=== PATIENT | female | born 1980 | race Hispanic/Latino ===

== ENCOUNTER 2018-06-17 04:48 | Inpatient (IN) | payer MEDICAID, OTHER ==
[~2018-06-17] VITALS: Ht 162.6 cm; Wt 79.4 kg
[2018-06-17] MEDS ORDERED: LACTATED RINGERS 1000ML 1,000 ML IV PRN (05:04)
[2018-06-17] MEDS ORDERED: MEPERIDINE-PF 50 MG/ML SYG IVP ONE (05:15)
[2018-06-17] MEDS ORDERED: PROMETHAZINE HCL 25 MG/ML 1ML AMPULE IM SCH (05:15)
[2018-06-17 05:18] LABS: HEMATOCRIT 36.2 % (36-48); MEAN CORPUSCULAR HEMOGLOBIN 30.4 pg (27.0-33.0); MEAN CORPUSCULAR HGB CONC 34.5 g/dL (32.0-36.0); PLATELET COUNT (AUTO) 158 K/uL (130-400); RED BLOOD CELL COUNT(AUTO) 4.12 MIL/uL (4.00-5.50); RED CELL DISTRIBUTION WIDTH 12.8 % (11.0-15.5); WHITE BLOOD COUNT (AUTO) 19.8 K/uL (4.8-10.8)
[2018-06-17] MEDS ORDERED: AMPICILLIN 2GM+NS 100ML 100 ML IV ONE (05:18)
[2018-06-17] MEDS ORDERED: PROMETHAZINE HCL 25 MG/ML 1ML AMPULE IM ONE (05:18)
[2018-06-17] MEDS ORDERED: MEPERIDINE-PF 50 MG/ML SYG ONE (05:19)
[2018-06-17] MEDS ORDERED: LACTATED RINGERS 1000ML 1,000 ML IV ONE (05:30)
[2018-06-17] MEDS ORDERED: AMPICILLIN 2GM+NS 100ML 100 ML IV SCH (05:30)
[2018-06-17] MEDS ORDERED: AMPICILLIN 1GM+NS 50ML 50 ML IV SCH (05:30)
[2018-06-17] MEDS ORDERED: OXYTOCIN 10 USP UNITS/ML ONE ×3 (05:31→07:38)
[2018-06-17] MEDS ORDERED: CEFAZOLIN SODIUM 1 GM VIAL ONE (06:28)
[2018-06-17] MEDS ORDERED: CALDOLOR 800MG+NS 250ML 250 ML IV ONE (06:32)
[2018-06-17] MEDS ORDERED: METHYLERGONOVINE MALEATE 0.2 MG/1 ML ML ONE (06:33)
[2018-06-17] MEDS ORDERED: FENTANYL CITRATE PF 50 MCG/1 ML 2ML VIAL ONE (06:40)
[2018-06-17] MEDS ORDERED: DURAMORPH PF1 MG/ML 10ML AMP IV ONE (06:40)
[2018-06-17] MEDS ORDERED: OXYTOCIN 10 USP UNITS/ML IV SCH (06:45)
[2018-06-17] MEDS ORDERED: METHYLERGONOVINE MALEATE 0.2 MG/1 ML ML IM SCH (06:45)
[2018-06-17] MEDS ORDERED: CALDOLOR 800MG+NS 250ML 250 ML IV SCH (06:45)
[2018-06-17] MEDS ORDERED: SENSORCAINE/DEXT/PF 0.75% 2ML AMP IJ ONE (06:47)
[2018-06-17] MEDS ORDERED: NEOMY SULF/POLYMYXIN B SULFATE 1 ML AMPUL IR ONE (07:05)
[2018-06-17] MEDS ORDERED: PHENYLEPHRINE HCL 10 MG/ML 1ML VIAL IV ONE (07:38)
[2018-06-17] MEDS ORDERED: OXYTOCIN-LR 20 UNITS/1000 ML 1,000 ML IV PRN (07:46)
[2018-06-17] MEDS ORDERED: SODIUM CHLORIDE 0.9% 10 ML VIAL IVP PRN (08:00)
[2018-06-17 08:02] LABS: RAPID PLASMA REAGIN NONREACTIVE (NONREACTIVE)
[2018-06-17] MEDS ORDERED: ONDANSETRON HCL 4 MG/2 ML VIAL ONE (08:06)
[2018-06-17 08:26] LABS: APPEARANCE,URINE Clear (CLEAR); BILIRUBIN,URINE Negative (NEGATIVE); COLOR,URINE Yellow (YELLOW); GLUCOSE, URINE (UA) Negative (NEGATIVE); KETONES,URINE 15 mg/dL (NEGATIVE); LEUKOCYTE ESTERASE ,URINE Negative (NEGATIVE); NITRATE,URINE Negative (NEGATIVE); OCCULT BLOOD,URINE Moderate (NEGATIVE); PROTEIN,URINE Negative (NEGATIVE); UROBILINOGEN,URINE 0.2 mg/dL (0.2-1.0)
[2018-06-17 08:34] LABS: AMPHET/METH SCREEN,URINE NEGATIVE (NEGATIVE); BARBITURATE SCREEN, URINE NEGATIVE (NEGATIVE); BENZODIAZEPINES SCREEN,URINE NEGATIVE (NEGATIVE); CANNABINOID SCREEN,URINE NEGATIVE (NEGATIVE); COCAINE SCREEN,URINE NEGATIVE (NEGATIVE); OPIATE SCREEN,URINE NEGATIVE (NEGATIVE); PHENCYCLIDINE SCREEN,URINE NEGATIVE (NEGATIVE)
[2018-06-17 08:53] LABS: BACTERIA,URINE Rare /HPF (None Seen); SQUAMOUS EPITHELIAL CELL,UR Rare /HPF (0-2); WBC,URINE 0-1 /HPF (0-1)
[2018-06-17] MEDS: CEFAZOLIN SODIUM 1 GM VIAL IVP SCH ×2 (09:01→16:19)
[2018-06-17 09:28] VITALS: BP 109/63
[2018-06-17] MEDS ORDERED: PREN-154 PO (09:44)
[2018-06-17] MEDS ORDERED: DiphenhydrAMINE HCL 50 MG/ML VIAL IVP PRN (10:00)
[2018-06-17] MEDS ORDERED: ONDANSETRON HCL 4 MG/2 ML 8 MG in SODIUM CHLORIDE 0.9% 50 ML IVP NR (10:00)
[2018-06-17] MEDS ORDERED: MORPHINE SULFATE 2 MG/ML 1ML SYG IVP PRN (10:00)
[2018-06-17] MEDS ORDERED: HYDROCODONE/ACETAMINOPHEN 5/325 MG TAB PO PRN (10:00)
[2018-06-17] MEDS ORDERED: EPHEDRINE SULFATE 50 MG/ML AMPULE IVP PRN (10:00)
[2018-06-17] MEDS ORDERED: NALOXONE HCL 0.4 MG/1 ML ML IVP PRN (10:00)
[2018-06-17] MEDS ORDERED: PROMETHAZINE HCL 25 MG/ML 1ML AMPULE IM PRN (10:00)
[2018-06-17] MEDS ORDERED: METOCLOPRAMIDE 10 MG/2 ML VIAL IVP PRN (10:00)
[2018-06-17] MEDS ORDERED: ONDANSETRON HCL 4 MG/2 ML VIAL IVP PRN ×2 (10:00)
[2018-06-17 11:44] VITALS: BP 110/66
[2018-06-17 16:19] VITALS: BP 111/63
[2018-06-17] MEDS: CALDOLOR 800MG+NS 250ML 250 ML IV SCH (16:19)
[2018-06-17] MEDS: HYDROCODONE/ACETAMINOPHEN 5/325 MG TAB PO PRN (16:20)
[2018-06-17] MEDS: DEXTROSE 5 %-0.45 % NACL 1,000 ML IV PRN ×2 (16:20→23:55)
[2018-06-17 20:48] VITALS: BP 95/58
[2018-06-18] VITALS (7 sets, daily range): BP systolic 97–109; BP diastolic 54–66
[2018-06-18] MEDS: CALDOLOR 800MG+NS 250ML 250 ML IV SCH (00:19)
[2018-06-18] MEDS: CEFAZOLIN SODIUM 1 GM VIAL IVP SCH (00:19)
[2018-06-18] MEDS: HYDROCODONE/ACETAMINOPHEN 5/325 MG TAB PO PRN (05:34)
[2018-06-18 06:25] LABS: HEMATOCRIT 25.9 % (36-48); MEAN CORPUSCULAR HEMOGLOBIN 29.3 pg (27.0-33.0); MEAN CORPUSCULAR HGB CONC 32.9 g/dL (32.0-36.0); MEAN CORPUSCULAR VOLUME 88.9 fL (79-99); PLATELET COUNT (AUTO) 113 K/uL (130-400); RED BLOOD CELL COUNT(AUTO) 2.92 MIL/uL (4.00-5.50); RED CELL DISTRIBUTION WIDTH 12.7 % (11.0-15.5); WHITE BLOOD COUNT (AUTO) 11.7 K/uL (4.8-10.8)
[2018-06-18 08:20] LABS: HEPATITIS Bs ANTIGEN SCREEN P Negative (Negative)
[2018-06-18] MEDS ORDERED: LANOLIN 30GM OINTMENT TP PRN (09:15)
[2018-06-18] MEDS ORDERED: BISACODYL 10 MG SUPP.RECT RC PRN (09:15)
[2018-06-18] MEDS: IBUPROFEN 800 MG TAB PO SCH ×2 (09:22→16:19)
[2018-06-18] MEDS ORDERED: DOCUSATE SODIUM 100 MG CAP PO ONE (10:48)
[2018-06-18] MEDS: SIMETHICONE 80 MG TAB.CHEW PO PRN ×2 (10:51→22:19)
[2018-06-18] MEDS: ACETAMINOPHEN-CODEINE 300/30MG TAB PO PRN ×2 (10:52→19:59)
[2018-06-18] MEDS: DIPH,PERTUSS(ACELL),TET VAC/PF 0.5 ML VIAL IM SCH (16:19)
[2018-06-18] MEDS ORDERED: MEASLES/MUMPS/RUBELLA VACCINE, LIVE 0.5 ML/VIAL SQ ONE (17:00)
[2018-06-18] MEDS: DOCUSATE SODIUM 100 MG CAP PO SCH (22:19)
[2018-06-19 03:43] VITALS: BP 108/68
[2018-06-19] MEDS: ACETAMINOPHEN-CODEINE 300/30MG TAB PO PRN ×2 (04:28→12:36)
[2018-06-19 07:20] VITALS: BP 124/70
[2018-06-19] MEDS: SIMETHICONE 80 MG TAB.CHEW PO PRN (08:53)
[2018-06-19] MEDS: DOCUSATE SODIUM 100 MG CAP PO SCH (08:53)
[2018-06-19] MEDS: IBUPROFEN 800 MG TAB PO SCH ×2 (08:54)
[2018-06-19] MEDS: DIPH,PERTUSS(ACELL),TET VAC/PF 0.5 ML VIAL IM SCH (09:15)
[2018-06-19 11:30] VITALS: BP 117/77
== END 2018-06-19 15:13 | disposition home or self-care (01) | DRG 766 ==
LOC: EDH 04:48 → LDH 04:49 → OBSVTOIN 04:49 → WSH 09:25
PROC: 10D00Z1 Extraction of Products of Conception, Low, Open Approach (ICD-10-PCS; principal; 2018-06-17 06:24)
PROC: 3E0234Z Introduction of Serum, Toxoid and Vaccine into Muscle, Percutaneous Approach (ICD-10-PCS; 2018-06-18)
DX: O69.1XX0 Labor and delivery complicated by cord around neck, with compression, not applicable or unspecified (principal); O32.4XX0 Maternal care for high head at term, not applicable or unspecified; Z3A.00 Weeks of gestation of pregnancy not specified; Z37.0 Single live birth; Z23 Encounter for immunization
CPT/HCPCS: 36415; 59510; 80305; 81001; 85027; 86592; 86701; 86850; 86900; 86901; 87340; 87390; 88307; 90707; 90715; A4218; A4344; A4606; J0290; J0690; J1200; J1741; J2175; J2210; J2274; J2370; J2405; J2550; J2590; J3010; J3490; J7120; Q2038

== ENCOUNTER 2022-08-17 07:07 | Emergency (ER) | payer MEDICAID, OTHER ==
[~2022-08-17] VITALS: Ht 154.9 cm; Wt 69.4 kg
[~2022-08-17 07:07] MED LIST: PREN-154 PO
[2022-08-17] MEDS ORDERED: 0.9%NACL 1000ML 1,000 ML IV SCH (07:30)
[2022-08-17 07:37] LABS: APPEARANCE,URINE CLOUDY (CLEAR); BILIRUBIN,URINE NEGATIVE (NEGATIVE); COLOR,URINE LIGHT-YELLOW (YELLOW); GLUCOSE, URINE (UA) NEGATIVE (NEGATIVE); KETONES,URINE NEGATIVE (NEGATIVE); LEUKOCYTE ESTERASE ,URINE 250 Leu/uL (NEGATIVE); NITRATE,URINE NEGATIVE (NEGATIVE); OCCULT BLOOD,URINE LARGE (NEGATIVE); PH,URINE 6.5 (5.0-8.0); PROTEIN,URINE NEGATIVE (NEGATIVE); UROBILINOGEN,URINE 0.2 mg/dL (0.2-1.0)
[2022-08-17 07:45] LABS: BASOPHILS % (AUTO) 0.5 % (0.0-5.0); HEMATOCRIT 35.9 % (36-48); LYMPHOCYTES % (AUTO) 30.3 % (21.0-51.0); MEAN CORPUSCULAR HEMOGLOBIN 30.6 pg (27.0-33.0); MEAN CORPUSCULAR HGB CONC 34.8 g/dL (32.0-36.0); MEAN CORPUSCULAR VOLUME 87.8 fL (79-99); MONOCYTES % (AUTO) 6.6 % (3.0-13.0); NEUTROPHILS % (AUTO) 61.4 % (40.0-77.0); PLATELET COUNT (AUTO) 183 K/uL (130-400); RED BLOOD CELL COUNT(AUTO) 4.09 MIL/uL (4.00-5.50); WHITE BLOOD COUNT (AUTO) 5.9 K/uL (4.8-10.8)
[2022-08-17 07:52] LABS: BACTERIA,URINE FEW /HPF (None Seen); MUCUS,URINE RARE LPF (None Seen); SQUAMOUS EPITHELIAL CELL,UR FEW /HPF (0-2); WBC,URINE 26-50 /HPF (0-1)
[2022-08-17 08:23] LABS: ALBUMIN 3.6 g/dL (3.5-5.0); CREATININE 0.7 mg/dL (0.5-1.5); POTASSIUM 3.7 mmol/L (3.5-5.1); TOTAL PROTEIN, SERUM 7.4 g/dL (6.0-8.3)
[2022-08-17 08:51] VITALS: BP 117/64
[2022-08-17] MEDS ORDERED: CEFTRIAXONE 1G VIAL IVP ONE (09:00)
[2022-08-17] MEDS ORDERED: CEPH500B PO (09:12)
== END 2022-08-17 09:33 | disposition home or self-care (01) ==
LOC: EDH 07:07
DX: O46.91 Antepartum hemorrhage, unspecified, first trimester (principal); O23.11 Infections of bladder in pregnancy, first trimester; N30.00 Acute cystitis without hematuria; Z3A.01 Less than 8 weeks gestation of pregnancy; Z98.890 Other specified postprocedural states
CPT/HCPCS: 99284; 96374; 76801; 96361; 80053; 84702; 85025; 86900; 86901; 87088; 81001; 36415; J7030; J0696

== ENCOUNTER 2023-01-20 16:11 | Observation (INO) | payer MEDICAID ==
[~2023-01-20] VITALS: Ht 165.1 cm; Wt 70.3 kg
[~2023-01-20 16:11] MED LIST changes: +CEPH500B PO
[2023-01-20] MEDS ORDERED: ACETAMINOPHEN 325 MG TAB ONE (18:35)
[2023-01-20] MEDS ORDERED: ACETAMINOPHEN 325 MG TAB PO ONE (19:00)
[2023-01-20] MEDS ORDERED: MEPERIDINE-PF 50 MG/ML SYG IVP PRN (20:00)
[2023-01-20] MEDS ORDERED: PROMETHAZINE HCL 25 MG/ML 1ML AMPULE IM PRN (20:00)
[2023-01-20] MEDS: LACTATED RINGERS 1000ML 1,000 ML IV PRN (20:26)
[2023-01-20 20:29] LABS: APPEARANCE,URINE CLEAR (CLEAR); BILIRUBIN,URINE NEGATIVE (NEGATIVE); COLOR,URINE LIGHT-YELLOW (YELLOW); GLUCOSE, URINE (UA) NEGATIVE (NEGATIVE); KETONES,URINE 60 mg/dL (NEGATIVE); LEUKOCYTE ESTERASE ,URINE NEGATIVE Leu/uL (NEGATIVE); NITRATE,URINE NEGATIVE (NEGATIVE); OCCULT BLOOD,URINE NEGATIVE (NEGATIVE); PH,URINE 6.5 (5.0-8.0); PROTEIN,URINE NEGATIVE (NEGATIVE); UROBILINOGEN,URINE 0.2 mg/dL (0.2-1.0)
[2023-01-20 20:35] LABS: AMPHET/METH SCREEN,URINE NEGATIVE (NEGATIVE); BARBITURATE SCREEN, URINE NEGATIVE (NEGATIVE); BENZODIAZEPINES SCREEN,URINE NEGATIVE (NEGATIVE); CANNABINOID SCREEN,URINE NEGATIVE (NEGATIVE); COCAINE SCREEN,URINE NEGATIVE (NEGATIVE); OPIATE SCREEN,URINE NEGATIVE (NEGATIVE); PHENCYCLIDINE SCREEN,URINE NEGATIVE (NEGATIVE)
[2023-01-20] MEDS: TERBUTALINE SULFATE VIAL 1MG/ML SQ PRN ×2 (20:41→21:16)
[2023-01-20 20:53] VITALS: BP 108/57
[2023-01-21] MEDS: LACTATED RINGERS 1000ML 1,000 ML IV PRN (00:34)
[2023-01-21] MEDS ORDERED: ACETAMINOPHEN 500 MG TABLET ONE (10:25)
[2023-01-21] MEDS ORDERED: ACETAMINOPHEN 500 MG TABLET PO ONE (10:30)
== END 2023-01-21 10:00 | disposition home or self-care (01) ==
LOC: EDH 16:11 → LDH 16:12 → EDH 18:53
PROVIDERS: ADMIT Obstetrics & Gynecology; ATTEND Obstetrics & Gynecology
DX: O09.523 Supervision of elderly multigravida, third trimester (principal); O99.891 Other specified diseases and conditions complicating pregnancy; M54.50 Low back pain, unspecified; R10.30 Lower abdominal pain, unspecified; Z98.891 History of uterine scar from previous surgery; Z3A.29 29 weeks gestation of pregnancy; W18.2XXA Fall in (into) shower or empty bathtub, initial encounter; Y92.89 Other specified places as the place of occurrence of the external cause; Y93.89 Activity, other specified; Y99.8 Other external cause status
CPT/HCPCS: 96374; 96361 ×3; 59025; 96372 ×2; 99284; 80305; 81003; 76805; G0378 ×15; J7120 ×2; J3105; J2550; J2175; 96360